=== PATIENT | male | born 1995 | race Caucasian/White ===

== ENCOUNTER 2017-08-18 03:51 | Emergency (ER) | payer OTHER ==
[~2017-08-18] VITALS: Ht 167.6 cm; Wt 58.6 kg
[~2017-08-18 03:51] MED LIST: NOCURR
[2017-08-18 05:31] VITALS: BP 117/69
== END 2017-08-18 06:16 | disposition home or self-care (01) ==
LOC: EMS 03:52
DX: T88.1XXA Other complications following immunization, not elsewhere classified, initial encounter (principal); J45.909 Unspecified asthma, uncomplicated; Z98.890 Other specified postprocedural states
CPT/HCPCS: 99283